=== PATIENT | male | born 1965 | race Caucasian/White ===

== ENCOUNTER 2023-04-22 03:08 | Day surgery (SDC) | payer BC, SELFPAY ==
[2023-04-08 13:58] VITALS: BMI 34.5
--- NOTE | 2023-04-19 10:29 | SUR.PREOP ---
Patient called regarding upcoming procedure. Reviewed preop instructions, appointment times, and procedure prep.
--- NOTE | 2023-04-21 14:31 | PM.HPGS ---
History of Present Illness History of Present Illness Consent: Risks, benefits, and alternatives have been discussed and questions answered. Patient agrees to proceed with procedure. Chief complaint: other fecal abnormalities Narrative: Rajan Polanco is a 58 year old male referred for colonoscopy because of a positive Cologuard test. Review of Systems Review of Systems: All systems reviewed & are unremarkable except as noted in HPI and below PMFSH Past Medical History Medical History Hypertension Hypogonadism Left knee pain Left shoulder pain Osteoarthritis Positive colorectal cancer screening using Cologuard test Testosterone deficiency Surgical History Surgical History H/O carpal tunnel repair History of appendectomy Family History Family History Mother Acute myocardial infarction Other No pertinent family history Social History Social History Smoking status: Never smoker Alcohol intake: current Drinks per week: 15 Substance use: never Substance use type: does not use Lack of Transportation: No Lack of Food: Never True Current Housing: I Have Housing Concerned About Future Housing: No Difficulty Paying Gas/Electric Bills: No Difficulty Paying for Meds: No Currently Unemployed: No Education: Don't Know Difficulty w/ Childcare or Family Care: No Living arrangements: alone Occupation/Education: occupation Additional occupation/education comments: Self Employed Spiritual care concerns: No Agree to blood products: Yes Meds Home Medications and Allergies Home Medications Medication Instructions Recorded Confirmed Type amlodipine 5 mg tablet 5 mg PO DAILY #90 tabs 10/30/22 04/08/23 Rx olmesartan 20 mg tablet 20 mg PO DAILY #90 tabs 10/30/22 04/08/23 Rx semaglutide (weight loss) 1.7 1.7 mg subcut WEEKLY 04/08/23 04/08/23 History mg/0.75 mL subcutaneous pen injector (Weluisvy) Allergies Allergy/AdvReac Type Severity Reaction Status Date / Time No Known Allergies Allergy Mild Verified 04/22/23 11:09 Exam Resp: Auscultation: clear to auscultation bilaterally Cardio: Rate: regular rate Rhythm: regular rhythm GI: GI Palp: Yes Soft to palpation and No Tenderness to palpation present (GI) Assessment and Plan Assessment and plan (1) Positive colorectal cancer screening using Cologuard test: Code(s): R19.5 - Other fecal abnormalities Status: Acute Assessment and Plan: Colonoscopy with possible biopsy or polypectomy or cautery or injection of substances.
[2023-04-22] MEDS: LACTATED RINGERS 1,000 ML 150 ML IV CONT (11:23)
--- NOTE | 2023-04-22 12:20 | WPDANESEPPF ---
Anes - Initial Pre Proc Eval Procedure: Operation Date: 04/22/23 13:00 Proposed Procedures p Colonoscopy - Moe Maldonado MD Date/Time: 04/22/23 12:20 Surgeon: Moe Maldonado MD Pre Op Diagnosis: other fecal abnormalities Patient Data Age: 58 Gender: M Height: 1.7 m Weight: 97 kg Allergies Allergy/AdvReac Type Severity Reaction Status Date / Time No Known Allergies Allergy Mild Verified 04/22/23 11:09 Home Medications Medication Instructions Recorded Confirmed Type amlodipine 5 mg tablet 5 mg PO DAILY #90 tabs 10/30/22 04/08/23 Rx olmesartan 20 mg tablet 20 mg PO DAILY #90 tabs 10/30/22 04/08/23 Rx semaglutide (weight loss) 1.7 1.7 mg subcut WEEKLY 04/08/23 04/08/23 History mg/0.75 mL subcutaneous pen injector (Wegovy) Patient hx anesthesia problems: none Family hx anesthesia problems: none Results Review: All pre-operative results and documents have been reviewed as part of the pre-operative evaluation. [facility] Past Medical History Medical History (Updated 03/21/23 @ 13:11 by Apollo Capps MD) Hypertension Hypogonadism Left knee pain Left shoulder pain Osteoarthritis Positive colorectal cancer screening using Cologuard test Testosterone deficiency Surgical History Surgical History H/O carpal tunnel repair History of appendectomy Family History Family History Mother Acute myocardial infarction Other No pertinent family history Social History Social History (Updated 10/30/22 @ 14:02 by Sunshine Colmenares CMA) Smoking status: Never smoker Alcohol intake: current Drinks per week: 15 Substance use: never Substance use type: does not use Lack of Transportation: No Lack of Food: Never True Current Housing: I Have Housing Concerned About Future Housing: No Difficulty Paying Gas/Electric Bills: No Difficulty Paying for Meds: No Currently Unemployed: No Education: Don't Know Difficulty w/ Childcare or Family Care: No Living arrangements: alone Occupation/Education: occupation Additional occupation/education comments: Self Employed Spiritual care concerns: No Agree to blood products: Yes Anes - Eval Final PreProcedure Day of Procedure 04/22/23 12:20 Patient weight: obese Heart: regular rate and rhythm Lungs: clear to auscultation Airway: Mallampati scale class II Neurological: alert and oriented Last oral intake: >/= 8 hours ASA classification: III Emergent: no Anesthetic plan: proceed Anesthesia type and monitoring: general GIVS and standard monitoring Results Review: All pre-operative results and documents have been reviewed as part of the pre-operative evaluation. Informed Consent: The patient's anesthetic plan and its attendant risks and benefits were discussed with the patient/family/POA. Questions were solicited and answers provided to the satisfaction of the patient/family/POA.
[2023-04-22 12:48] VITALS: BP 88/40; PULSE 61; RESP 28; O2SAT 99
[2023-04-22 12:58] VITALS: BP 110/74; PULSE 61; RESP 28; O2SAT 99
[2023-04-22 13:35] VITALS: BP 115/74; PULSE 86; RESP 22; O2SAT 98
== END 2023-04-22 13:42 | disposition home or self-care (01) ==
PROVIDERS: PCP Family Medicine; Visit Provider Internal Medicine Gastroenterology
PROC: 0DJD8ZZ Inspection of Lower Intestinal Tract, Via Natural or Artificial Opening Endoscopic (ICD-10-PCS; CPT 45378; principal; 2023-04-22 13:00)
DX: Z12.11 Encounter for screening for malignant neoplasm of colon (principal); K64.8 Other hemorrhoids; K62.1 Rectal polyp; R19.5 Other fecal abnormalities; I10 Essential (primary) hypertension; E29.1 Testicular hypofunction; E66.9 Obesity, unspecified; Z68.33 Body mass index [BMI] 33.0-33.9, adult; Z79.85 Long-term (current) use of injectable non-insulin antidiabetic drugs; Z82.49 Family history of ischemic heart disease and other diseases of the circulatory system
CPT/HCPCS: 45385; 88305; J2704; J7120

== ENCOUNTER 2023-08-28 15:27 | Emergency (ER) | payer BC, SELFPAY ==
--- NOTE | ~2023-08-28 | CT_ITS ---
EXAMINATION: CT soft tissue neck chest w DATE: 08/28/2023 17:03 INDICATION: Left anterior neck swelling. TECHNIQUE: Computed tomography (CT) of the neck and chest was performed with 75 mL Omnipaque-350 intr avenous contrast. Automated exposure control and iterative reconstruction technique were employed. e dose-length product was 1713.60 mGy-cm. COMPARISON: None FINDINGS: CT NECK: Left submandibular gland is enlarged with surrounding fat stranding. There is a 2 mm sialoli th in the duct for left submandibular gland. There are no pathologically enlarged lymph nodes. There is a 12 mm nodule in right thyroid lobe, likely not clinically significant. There is severe cervical spondylosis. CT CHEST: The lungs demonstrate mild atelectasis. No pleural effusion. The heart size is normal. No p ericardial effusion. There are no pathologically enlarged lymph nodes. There is mild thoracic spondyl osis. IMPRESSION: 1. Sialadenitis involving left submandibular gland with 2 mm sialolith in the duct for left submandib ular gland. Reviewed, dictated and finalized at location E. IMPRESSION: 1. Sialadenitis involving left submandibular gland with 2 mm sialolith in the d uct for left submandibular gland.
[2023-08-28 15:52] VITALS: BP 150/9; PULSE 76; RESP 16; TEMP 36.7; O2SAT 100
--- NOTE | 2023-08-28 16:02 | ED.GENADULT ---
HPI - General Adult General Chief complaint: Unspecified <Kishor Acosta APRN - Last Filed: 08/28/23 16:07> Stated complaint: lump on neck <Kishor Acosta APRN - Last Filed: 08/28/23 16:07> Time Seen by Provider: 08/28/23 16:02 <Kishor Acosta APRN - Last Filed: 08/28/23 16:07> Focused HPI: Trent is a 58-year-old male patient presenting to the ER today with complaints of swelling to the left anterior cervical neck. He reports that this just flared up this afternoon. It is having mild difficulty with swallowing his saliva. No drooling obvious. Denies any fever, chills, body aches. States that this happened a couple weeks ago any was placed on antibiotic and went down some. General: Well-developed, well nourished, in no apparent distress Head: Normocephalic, atraumatic Eyes: Pupils equally round and reactive to light bilaterally, EOM intact, sclera and conjunctive clear, no discharge, lids normal Ears: TMs intact and clear, ear canals clear, no drainage, grossly hearing normal. Nose: Nares patent, no discharge, no inflammation, no sinus tenderness. Mouth: Oropharynx without lesions or masses, good dentition, MMM. Neck: Supple, trachea midline, enlargement/swelling of left anterior cervical region, induration palpable measuring 4cm x 2.5 cm,no thyroid masses or goiter palpable. Cardio: Regular rate and rhythm, s1 and s2 normal, no murmur appreciated. Resp: Clear to auscultation bilaterally anteriorly and posteriorly, no rhonchi, rales, wheezing or rubs Patient screened in triage and initial orders placed. Additional care and disposition to be based upon diagnostic testing and treatment. <Kishor Acosta APRN - Last Filed: 08/28/23 16:07> Source: patient <Kishor Acosta APRN - Last Filed: 08/28/23 16:07> Mode of arrival: ambulatory <Kishor Acosta APRN - Last Filed: 08/28/23 16:07> Limitations: no limitations <Kishor Acosta APRN - Last Filed: 08/28/23 16:07> History of Present Illness HPI narrative: 58-year-old male presented emergency department for evaluation persistent swelling the left neck <Manny Bhakta MD - Last Filed: 08/30/23 21:21> Related Data Allergies/adverse reactions: Allergies Allergy/AdvReac Type Severity Reaction Status Date / Time No Known Allergies Allergy Mild Verified 08/28/23 15:56 <Kishor Acosta APRN - Last Filed: 08/28/23 16:07> Review of Systems Review of Systems: All systems reviewed & are unremarkable except as noted in HPI and below <Manny Bhakta MD - Last Filed: 08/30/23 21:21> PMFSH Past Medical History Medical History: Medical History Hypertension Hypogonadism Left knee pain Left shoulder pain Osteoarthritis Positive colorectal cancer screening using Cologuard test Testosterone deficiency <Kishor Acosta APRN - Last Filed: 08/28/23 16:07> Surgical History Surgical History: Surgical History H/O carpal tunnel repair History of appendectomy <Kishor Acosta APRN - Last Filed: 08/28/23 16:07> Family History Family History: Family History Mother Acute myocardial infarction Other No pertinent family history <Kishor Acosta APRN - Last Filed: 08/28/23 16:07> Social History Social History: Social History Smoking status: Never smoker Alcohol intake: current Drinks per week: 15 Substance use: never Substance use type: does not use Lack of Transportation: No Lack of Food: Never True Current Housing: I Have Housing Concerned About Future Housing: No Difficulty Paying Gas/Electric Bills: No Difficulty Paying for Meds: No Currently Unemployed: No Education: Don't Know Diffic
[2023-08-28 16:31] LABS: Basophils Absolute Auto 0.1 K/mm3 (0.0-0.1); Basophils Percent Auto 0.6 % (0.2-1.2); Eosinophils Absolute Auto 0.2 K/mm3 (0-0.3); Eosinophils Percent Auto 2.2 % (0-4.4); Hematocrit 51.9 % (42.0-52.0); Hemoglobin 17.7 g/dL (14.0-18.0); Immature Granulocyte Absolute 0.02 K/mm3 (0.00-0.031); Immature Granulocyte Percent A 0.2 % (0-0.5); Lymphocytes Percent Auto 21.3 % (18.3-44.2); Mean Corpuscular HGB Conc 34.1 g/dl (32-36); Mean Corpuscular Hemoglobin 34.6 pg (26-34); Mean Corpuscular Volume 101.4 fl (80-100); Mean Platelet Volume 9.9 fl (7.4-10.4); Monocytes Absolute Auto 0.9 K/mm3 (0.1-0.6); Monocytes Percent Auto 10.6 % (2.6-8.5); Neutrophils Absolute Auto 5.5 K/mm3 (1.3-6.7); Neutrophils Percent Auto 65.1 % (45.5-73.1); Platelet Count Result 206 k/mm3 (150-375); Red Blood Count 5.12 M/mm3 (4.6-6.20); Red Cell Distribution Width 12.8 % (11.5-14.5); White Blood Count 8.5 K/mm3 (4.5-10.0)
[2023-08-28 16:37] LABS: Alanine Aminotransferase 21 U/L (6-50); Albumin Level 4.7 g/dL (3.5-5.1); Alkaline Phosphatase 72 U/L (38-126); Anion Gap 7 mmol/L (4-12); Aspartate Amino Transferase 32 U/L (17-59); Bilirubin,Total 1.2 mg/dL (0.2-1.3); Blood Urea Nitrogen 15 mg/dL (9-20); Calcium 9.9 mg/dL (8.4-10.2); Carbon Dioxide 30 mmol/L (22-30); Chloride 100 mmol/L (98-107); Estimated CRCL calculation 94 ml/min; Estimated Glomerular Filt Rate > 60; Glucose 95 mg/dL (65-110); Potassium 4.1 mmol/L (3.4-5.0); Sodium 137 mmol/L (137-145)
[2023-08-28 16:53] LABS: Estimated CRCL calculation 76 ml/min; Estimated Glomerular Filt Rate > 60
== END 2023-08-28 17:32 | disposition home or self-care (01) ==
PROVIDERS: Nurse Practitioner Family; Emergency Provider Emergency Medicine; PCP Nurse Practitioner Family
DX: K11.20 Sialoadenitis, unspecified (principal); I10 Essential (primary) hypertension; M19.90 Unspecified osteoarthritis, unspecified site
CPT/HCPCS: 36415; 70491; 71260; 80053; 85025; 99284; Q9967

== ENCOUNTER 2025-02-09 10:13 | Outpatient (CLI) | payer BC, SELFPAY ==
--- NOTE | ~2025-02-09 | US_ITS ---
EXAMINATION: US soft tissue head and neck, 02/09/2025 10:15 CDT HISTORY: R22.1 - Localized swelling, mass and lump, neck Comparison: None Technique: Wong-scale and color Doppler images were obtained. Findings: Correlating with the palpable area adjacent to the submandibular gland there is a lymph node identified measuring 10 x 6 x 8 mm with a normal-appearing hilum without abnormal flow. The submandibular gland appears slightly enlarged however there is no abnormal flow. Incidental multiple bilateral thyroid nodules are noted incompletely evaluated. IMPRESSION: 1. Nonspecific prominence of the submandibular gland with nonspecific prominent probable submandibular lymph node. Findings may reflect underlying infection, if symptoms persist contrast-enhanced MRI recommended 2. Thyroid nodules incompletely evaluated. Dedicated thyroid ultrasound recommended Reviewed, dictated and finalized at location P. IMPRESSION: 1. Nonspecific prominence of the submandibular gland with nonspecific prominent probable submandibular lymph node. Findings may reflect underlying infection, if symptoms persist contrast-enhanced MRI recommended 2. Thyroid nodules incompletely evaluated. Dedicated thyroid ultrasound recomme nded
== END 2025-02-09 10:14 | disposition home or self-care (01) ==
LOC: MICIMG 10:14
PROVIDERS: PCP Nurse Practitioner Family; Visit Provider Nurse Practitioner Family
DX: R22.1 Localized swelling, mass and lump, neck (principal); E04.1 Nontoxic single thyroid nodule; K11.20 Sialoadenitis, unspecified
CPT/HCPCS: 76536

== ENCOUNTER 2025-02-15 12:55 | Outpatient (CLI) | payer BC, SELFPAY ==
--- NOTE | ~2025-02-15 | CT_ITS ---
EXAMINATION: CT abdomen pelvis wo con DATE: 02/15/2025 13:21 INDICATION: Abdominal pain. Low back pain. TECHNIQUE: Computed tomography (CT) of the abdomen and pelvis was performed without intravenous contrast. Automated exposure control and iterative reconstruction technique were employed. The dose-length product was 933.31 mGy-cm. COMPARISON: None. FINDINGS: The visualized portions of the lung bases demonstrate mild atelectasis. There is mild bronchiectasis in right lower lobe. No pleural effusion. The heart size is normal. No pericardial effusion. The liver, gallbladder, spleen, pancreas, adrenal glands, and kidneys are normal. There is no urolithiasis. The prostate is moderately enlarged. There is a right inguinal hernia containing fat. There are no dilated loops of bowel. The appendix is not visualized. There is an umbilical hernia containing fat. There are no pathologically enlarged lymph nodes. There is no free intraperitoneal fluid. There is mild thoracic and lumbar spondylosis. IMPRESSION: 1. No urolithiasis. 2. Right inguinal hernia containing fat. 3. Umbilical hernia containing fat. Reviewed, dictated and finalized at location E.
== END 2025-02-15 12:56 | disposition home or self-care (01) ==
LOC: MICIMG 12:56
PROVIDERS: PCP Nurse Practitioner Family; Visit Provider Nurse Practitioner Family
DX: K40.90 Unilateral inguinal hernia, without obstruction or gangrene, not specified as recurrent (principal); K42.9 Umbilical hernia without obstruction or gangrene
CPT/HCPCS: 74176